=== PATIENT | female | born 1975 | race Caucasian/White ===

== ENCOUNTER → 2017-12-17 | Outpatient (CLI) | payer OTHER | LOC: LAB 12:47 | PROVIDERS: ATTEND Internal Medicine Gastroenterology | DX: R89.9 Unspecified abnormal finding in specimens from other organs, systems and tissues (principal) | CPT/HCPCS: 36415; 82040; 82247; 82248; 82306; 84075; 84155; 84450; 84460 ==

== ENCOUNTER → 2019-04-08 | Outpatient (CLI) | payer OTHER ==
--- NOTE | 2019-04-08 16:06 | RADIOLOGY IMAGING REPORT ---
FACILITY: [facility] - [place] PATIENT NAME: Deidre Farooq : 1975 MR: [id number] V: [id number] EXAM DATE: ORDERING PHYSICIAN: REBEKAH KING TECHNOLOGIST: Location: [facility] - [place], [place] Patient: Deidre Farooq : 1975 Visit/Account:[id number] Date of Sevice: 04/08/2019 THYROID HISTORY: Right-sided thyroid nodules COMPARISON: January 21, 2015 FINDINGS: SIZE: Right lobe: 5.8 x 1.1 x 1.6 cm Left lobe: 5.1 x 1 x 1.6 cm Isthmus: 2.5 mm PARENCHYMA: Homogeneous. NODULES: Right lobe: * In the superior pole there is a 4 mm well-circumscribed hypoechoic nodule. In the inferior pole i s an isoechoic nodule measuring 2.2 x 1.6 x 1.7 cm. This nodule previously measured 2.3 cm in maximu m dimension Left lobe: * There are three tiny cysts in the left lobe Isthmus: * None discrete. VASCULARITY: Within normal limits. ADDITIONAL FINDINGS: None. IMPRESSION: There is a solid isoechoic nodule in the inferior right lobe measuring 2.2 centers in maximum dimensi on that has remained stable dating back to 2012. By report this nodule has been previously biopsied REFERENCE: 2015 [employer] Management Guidelines for Adult Patients with Thyroid Nodules and D ifferentiated Thyroid Cancer: The [place] [employer] Guidelines Task Force on Thyroid Nodul es and Differentiated Thyroid Cancer. SONOGRAPHIC PATTERNS: * Benign: Purely cystic nodules (no solid component); estimated risk of malignancy <1 percent; no bi opsy recommended. * Very Low Suspicion: Spongiform or partially cystic nodules without any of the sonographic features described in low, intermediate, or high suspicion patterns; estimated risk of malignancy <3 percent; consider FNA at > 2 cm (Observation without FNA is also a reasonable option). * Low Suspicion: Isoechoic or hyperechoic solid nodule, or partially cystic nodule with eccentric so lid areas, without microcalcification, irregular margin or ETE (extra-thyroidal extension), or taller than wide shape; estimated risk of malignancy 5-10 percent; recommend FNA at >1.5 cm. * Intermediate Suspicion: Hypoechoic solid nodule with smooth margins without microcalcifications, E TE (extra-thyroidal extension), or taller than wide shape; estimated risk of malignancy 10-20 percent ; recommend FNA at > 1 cm. * High Suspicion: Solid hypoechoic nodule or solid hypoechoic component of a partially cystic nodule with one or more of the following features: irregular margins (infiltrative, microlobulated), microc alcifications, taller than wide shape, rim calcifications with small extrusive soft tissue component, evidence of ETE (extra-thyroidal extension); estimated risk of malignancy >70-90 percent; recommend FNA at > 1 cm. NOTES: * Although a sonographically suspicious subcentimeter thyroid nodule without evidence of extrathyroi jaleesa extension or sonographically suspicious lymph nodes may be observed with close sonographic follow -up rather than pursuing immediate FNA, patient age and preference may modify decision-making. A > 50% interval increase in nodule volume and/or development of new suspicious sonographic features are felt to be a valid reasons for potential re-aspiration of a nodule previously shown to have benig n FNA cytology. Report Dictated By: Ida Shah MD at 04/08/2019 3:53 PM Report E-Signed By: Ida Shah MD at 04/08/2019 3:58 PM WSN:[email or web address]
--- NOTE | 2019-04-08 16:11 | RADIOLOGY IMAGING REPORT ---
FACILITY: [facility] PATIENT NAME: Deidre Farooq : 1975 MR: [id number] V: [id number] EXAM DATE: ORDERING PHYSICIAN: REBEKAH KING TECHNOLOGIST: Location: [facility] - [place] Patient: Deidre Farooq : 1975 Visit/Account:[id number] Date of Sevice: 04/08/2019 Exam type: SOFT TISSUE HEAD NECK History: Right neck pain Comparison: Today's thyroid ultrasound. Findings: There is a lymph nodes in zone one on the right one measuring 8 x 7 x 16 mm and appears fatty replace d. There is an additional hypoechoic hypervascular mass measuring measuring 5 x 8 x 8 mm. Isoechoic right-sided thyroid nodule again seen and was discussed in today's thyroid ultrasound. In zone four on the right there is a 6 x 3 x 7 mm fatty replaced lymph node In zone one on the left there is a 1.6 x 0.8 x 0.7 cm hypervascular mass. This could represent an at ypical appearing lymph node or possibly the left submandibular gland IMPRESSION: 1. 8 x 7 x 16 mm fatty replaced lymph node in zone one on the right There is an additional hypervascular hypoechoic mass in zone one on the right measuring 5 x 8 x 8 mm does not have a fatty hilum and could represent an atypical lymph node or possibly related to the rig ht submandibular gland. In zone one on the left there is a 1.6 x 0.8 x 0.7 cm hypervascular mass. Again this could represent an atypical lymph node or related to the left submandibular gland. If patient's symptoms persist a CT of the neck with contrast is recommended Report Dictated By: Ida Shah MD at 04/08/2019 3:58 PM Report E-Signed By: Ida Shah MD at 04/08/2019 4:03 PM WSN:[email or web address]
== END ==
LOC: US 00:40
PROVIDERS: ATTEND Family Medicine
DX: E04.1 Nontoxic single thyroid nodule (principal)
CPT/HCPCS: 76536